=== PATIENT | female | born 1955 ===

== ENCOUNTER 2017-04-16 13:01 | Inpatient (IN) | payer OTHER ==
[~2017-04-16] VITALS: Ht 165.1 cm; Wt 57.9 kg
[2017-04-16 14:32] LABS: BASOPHIL % 1.4 % (0-2); PLATELET COUNT 180 x10^3mcL (130-400); RED CELL DISTRIBUTION WIDTH 12.6 % (11.5-14.5)
[2017-04-16 14:39] LABS: CALCIUM 7.8 mg/dL (8.5-10.1); CARBON DIOXIDE 26.6 mmol/L (21-32); CHLORIDE SERUM 104 mmol/L (98-107); CREATININE SERUM 0.8 mg/dL (0.6-1.0); GFR1 > 60 mL/min; GLUCOSE SERUM 81 mg/dL (74-106); POTASSIUM SERUM 3.8 mmol/L (3.5-5.1); SODIUM SERUM 136 mmol/L (136-145)
[2017-04-16 14:53] LABS: ALKALINE PHOSPHATASE 52 U/L (46-116); ALT/SGPT 71 U/L (14-59); AST/SGOT 80 U/L (15-37); BILIRUBIN TOTAL 0.2 mg/dL (0.20-1.00); CK-MB 0.5 ng/mL (0-3.6); TOTAL PROTEIN, SERUM 6.5 g/dL (6.4-8.2)
[2017-04-16 17:41] LABS: UA SPECIFIC GRAVITY <=1.005 (1.005-1.035); microscopic required? YES; urine erythrocyte TRACE (NEGATIVE)
[2017-04-16 19:56] VITALS: BP 92/57
[2017-04-16 23:10] VITALS: BP 126/72
[2017-04-17 03:15] VITALS: BP 130/71
[2017-04-17 05:11] LABS: PLATELET COUNT 164 x10^3mcL (130-400); RED CELL DISTRIBUTION WIDTH 13.8 % (11.5-14.5)
[2017-04-17 05:12] LABS: BASOPHIL % 0 % (0-2)
[2017-04-17 05:19] LABS: CALCIUM 7.9 mg/dL (8.5-10.1); CARBON DIOXIDE 24.6 mmol/L (21-32); CHLORIDE SERUM 104 mmol/L (98-107); CREATININE SERUM 0.7 mg/dL (0.6-1.0); GFR1 > 60 mL/min; GLUCOSE SERUM 104 mg/dL (74-106); POTASSIUM SERUM 3.6 mmol/L (3.5-5.1); SODIUM SERUM 134 mmol/L (136-145)
[2017-04-17 08:00] VITALS: BP 101/54
[2017-04-17 12:00] VITALS: BP 129/75
[2017-04-17 15:33] VITALS: BP 112/66
[2017-04-17 20:28] VITALS: BP 118/73
[2017-04-17 23:19] VITALS: BP 106/58
[2017-04-18 03:27] VITALS: BP 116/68
[2017-04-18 05:32] LABS: BASOPHIL % 0.1 % (0-2); PLATELET COUNT 180 x10^3mcL (130-400); RED CELL DISTRIBUTION WIDTH 13.8 % (11.5-14.5)
[2017-04-18 05:47] LABS: CALCIUM 8.4 mg/dL (8.5-10.1); CARBON DIOXIDE 26.8 mmol/L (21-32); CHLORIDE SERUM 107 mmol/L (98-107); CREATININE SERUM 0.8 mg/dL (0.6-1.0); GFR1 > 60 mL/min; GLUCOSE SERUM 154 mg/dL (74-106); POTASSIUM SERUM 3.7 mmol/L (3.5-5.1); SODIUM SERUM 139 mmol/L (136-145)
[2017-04-18 07:20] VITALS: Ht 165.1 cm; Wt 57.9 kg
[2017-04-18 07:50] VITALS: BP 117/68
[2017-04-18 12:08] VITALS: BP 102/64
[2017-04-18] MEDS ORDERED: PROA GT (12:52)
[2017-04-18] MEDS ORDERED: LEVAQUIN750 MG GT (12:52)
[2017-04-18 15:20] VITALS: BP 114/63
[2017-04-18 16:26] VITALS: BP 114/63
== END 2017-04-18 17:07 | disposition home health service (06) | DRG 720 ==
LOC: ED 13:01 → IC 18:02
PROVIDERS: Emergency Medicine; Internal Medicine; Internal Medicine Pulmonary Disease
DX: A41.9 Sepsis, unspecified organism (principal); J96.01 Acute respiratory failure with hypoxia; R65.21 Severe sepsis with septic shock; Z93.0 Tracheostomy status; J18.9 Pneumonia, unspecified organism; Z93.1 Gastrostomy status
CPT/HCPCS: 36600; 83880; 87804; 97110-GP; 97116-GP; 97530-GP; J0456; J1644; J1956; J2543; J3490; J7030; J7613; J7644; Q0092; Q9967